=== PATIENT | female | born 1945 | race Caucasian/White ===

== ENCOUNTER → 2023-12-15 | Outpatient (CLI) | payer OTHER | END | disposition home or self-care (01) | LOC: RAH 09:09 | PROVIDERS: ATTEND Internal Medicine Cardiovascular Disease | DX: Z13.6 Encounter for screening for cardiovascular disorders (principal) | CPT/HCPCS: 75571 ==

== ENCOUNTER → 2024-01-22 | Outpatient (CLI) | payer MEDICARE, MEDICAID | END | disposition home or self-care (01) | LOC: SHCH 09:17 | PROVIDERS: ATTEND Internal Medicine Cardiovascular Disease | DX: I10 Essential (primary) hypertension (principal) | CPT/HCPCS: 93975 ==

== ENCOUNTER → 2024-10-26 | Outpatient (CLI) | payer MEDICARE ==
[~2024-10-26] MED LIST: IOHEXOL-350 75 ML VIAL IV ONE
--- NOTE | 2024-10-27 03:40 | HMCIMG ---
EXAM: CTA abdomen with and without Intravenous Contrast CLINICAL HISTORY: Atherosclerosis of the renal artery. TECHNIQUE: Axial CTA images of the abdomen with and without intravenous contrast. Reformatted images were created and reviewed. CONTRAST: was injected intravenously without incident. COMPARISON: None provided. FINDINGS: Kidneys: The right kidney measures 8.5 x 4.5 cm. Renal contour is preserved. No focal lesions or hydronephrosis. Renal parenchymal enhancement is homogeneous. Perinephric fat planes are preserved. The left kidney measures 8 x 4.5 cm. Renal contour is preserved. No focal lesions or hydronephrosis. Renal parenchymal enhancement is homogeneous. Perinephric fat planes are preserved. There is a subcentimeter simple renal cortical cyst at the left renal upper pole. There is another 10 mm hyperdense non-enhancing cyst at the upper pole of the left kidney, likely a hemorrhagic cyst. Renal Arteries: Left renal artery: Intimal calcification is noted along the proximal segment extending for a length of 11 mm with 20-30% luminal stenosis. No post-stenotic dilatation is seen. The remainder of the vessel appears normal in course and caliber. Right renal artery: Normal origin, course, and calibre. No evidence of stenosis, aneurysm, or dissection. Abdominal Aorta and Branches: Mild atherosclerotic calcifications are evident in the suprarenal and infrarenal abdominal aorta and extend into the branches of the visualised bilateral common iliac arteries. No significant luminal narrowing or aneurysmal dilatation is identified. Mild calcific plaques at the origins of the celiac trunk and superior mesenteric artery without luminal stenosis. Other Abdominal Organs: The visualized liver, gallbladder, common bile duct, pancreas, and spleen are unremarkable. No focal lesions or abnormal enhancement patterns are seen. Bowel: The visualized segments of the large and small bowel appear normal. No evidence of wall thickening, dilatation, or obstruction. Musculoskeletal Structures: Moderate degenerative osseous changes and diffuse osteopenia. Other Findings: No free fluid or free air in the abdomen. No significant lymphadenopathy. IMPRESSION: 1. Mild atherosclerotic desiccation in the proximal left renal artery with 20-30% luminal stenosis. 2. Mild atherosclerotic calcifications in the suprarenal and infrarenal abdominal aorta, common iliac arteries, celiac trunk, and superior mesenteric artery without significant stenosis. 3. Left renal upper pole 10 mm hemorrhagic cyst and subcentimeter simple cortical cyst. 4. Moderate degenerative osseous changes and diffuse osteopenia. /[place]
== END | disposition home or self-care (01) ==
LOC: RAH 07:41
PROVIDERS: ATTEND Internal Medicine Cardiovascular Disease
DX: I70.1 Atherosclerosis of renal artery (principal); N28.1 Cyst of kidney, acquired; I70.0 Atherosclerosis of aorta; I70.8 Atherosclerosis of other arteries; M47.819 Spondylosis without myelopathy or radiculopathy, site unspecified; M85.80 Other specified disorders of bone density and structure, unspecified site; K55.1 Chronic vascular disorders of intestine
CPT/HCPCS: 74175; Q9967

== ENCOUNTER → 2024-11-23 | Outpatient (CLI) | payer MEDICARE ==
[2024-11-23] MEDS: REGADENOSON 0.4 MG/5 ML PF SYG IVP ONE (09:58)
--- NOTE | 2024-11-23 14:41 | HMCSR ---
APPROVED REPORT Height: 5 ft 4in Weight: 145 lbs TEST INDICATIONS CAD The imaging protocol used to acquire images was Rest Tc-99m/stress Tc-99m 1 day Consent: The procedure was explained and understood by the patient. Informerd consent was witnessed Susan Hunter RN First, low dose rest was performed then high dose stress. RESTING DATA: The resting ekg shows: NSR Rest SPECT myocardial perfusion imaging was performed in supine position minutes following the intra venous injection of 11 mCi of Tc-99 Sestamibi. Time of rest injection: Date: 11/23/2024 Time of rest imaging: Date: 11/23/2024 PHARMACOLOGIC STRESS: Pharmacologic stress test was performed by injecting regadenoson 0.4 mg IV push followed by the intra venous injection of 29.7 mCi of Tc-99 Sestamibi. Time of stress injection: Date: 11/23/2024 Time of stress imaging: Date: 11/23/2024 Heart Rate at time of stress injection: 55 bpm. The images were gated to evaluate regional wall motion and calculate left ventricular ejection fracti on. STRESS DETAILS Reason for Termination: Infusion complete Stress Symptoms: Dyspnea; Stomach Pain Max HR Achieved: 83 bpm % of APMHR Achieved: 69 Max Blood Pressure: 200/60 mmHg Stress ECG: NSR Conclusion No ischemia No infarct LV ejection fraction of 77% Normal LV size at rest and stress Normal LV wall motion No evidence of increased lung uptake
== END | disposition home or self-care (01) ==
LOC: RAH 09:04
PROVIDERS: ATTEND Internal Medicine Cardiovascular Disease
DX: I25.10 Atherosclerotic heart disease of native coronary artery without angina pectoris (principal); R06.00 Dyspnea, unspecified; R10.9 Unspecified abdominal pain
CPT/HCPCS: 78452; 93017; J2785; A9500 ×2